=== PATIENT | female | born 1955 | race Caucasian/White ===

== ENCOUNTER 2020-06-20 05:29 | Inpatient (IN) | payer MEDICARE, BC ==
[2020-06-13 16:10] LABS: BASOPHILS # (AUTO) 0.1 X10'3 (0-0.2); BASOPHILS % (AUTO) 0.9 % (0-1); EOSINOPHILS # (AUTO) 0.1 X10'3 (0-0.9); EOSINOPHILS % (AUTO) 1.4 % (0-6); LYMPHOCYTES # (AUTO) 2.4 X10'3 (1.1-4.8); LYMPHOCYTES % (AUTO) 26.9 % (21-51); MEAN CORPUSCULAR HGB CONC 33.5 g/dL (33.0-36.5); MEAN CORPUSCULAR VOLUME 86.4 FL (78-98); MEAN PLATELET VOLUME 8.7 FL (7.4-10.4); MONOCYTES # (AUTO) 0.6 X10'3 (0-0.9); MONOCYTES % (AUTO) 6.7 % (2-12); NEUTROPHILS # (AUTO) 5.8 X10'3 (1.8-7.7); NEUTROPHILS % (AUTO) 64.1 % (42-75); PRE OP HEMOGLOBIN 14.1 g/dL (12.0-16.0); PRE OP PLATELET COUNT 194 X10'3 (140-440); RED BLOOD COUNT 4.87 X10'6 (4.20-5.60); RED CELL DISTRIBUTION WIDTH 15.1 % (11.5-14.5)
[2020-06-13 16:18] LABS: HEMOGLOBIN A1C 6.8 % (4.5-6.2)
[2020-06-13 16:21] LABS: ALBUMIN 4.1 G/DL (3.4-5.0); ALBUMIN/GLOBULIN RATIO 1.1 (1.1-1.5); ALKALINE PHOSPHATASE 81 IU/L (46-116); BLOOD UREA NITROGEN 21 MG/DL (7-18); BUN/CREATININE RATIO 22.1 (6.6-38.0); CHLORIDE 104 MMOL/L (99-107); CREATININE 0.95 MG/DL (0.40-0.90); PRE OP ALT 33 U/L (30-65); PRE OP ANION GAP 12 (8-16); PRE OP AST 18 U/L (10-37); PRE OP BILIRUB, TOTAL 0.6 MG/DL (0.0-1.0); PRE OP GLUCOSE 119 MG/DL (70-104); PRE OP SODIUM 139 MMOL/L (135-145); TOTAL PROTEIN 7.7 G/DL (6.4-8.2); eGFR 59 ML/MIN
[2020-06-20] VITALS (21 sets, daily range): BP systolic 118–160; BP diastolic 66–81
[~2020-06-20] VITALS: Ht 162.6 cm; Wt 116.1 kg
[~2020-06-20 05:29] MED LIST: AMLO10TA PO; ATOR40TA PO; BENA20TA82 PO; FLUO40CA PO; METF1000 PO; ringers solution, lacted 1,000 ML IV SCH
[2020-06-20] MEDS ORDERED: ceFAZolin 2gm in dextrose, iso 50 ML IV ONE (05:30)
[2020-06-20] MEDS ORDERED: famotidine 20mg tablet PO ONE (05:30)
[2020-06-20] MEDS ORDERED: LIDOcaine 1% (10mg/ml) 2ml vial ONE (05:53)
[2020-06-20] MEDS ORDERED: propofol inj 20 ML IV ONE (07:22)
[2020-06-20] MEDS ORDERED: rocuronium 10mg/ml inj IV ONE (07:22)
[2020-06-20] MEDS ORDERED: midazolam 2 mg/2 ml injection ONE (07:22)
[2020-06-20] MEDS ORDERED: fentaNYL /PF 50mcg/ml 5ml ampule ONE (07:22)
[2020-06-20] MEDS ORDERED: sevoflurane 250ml liquid IH ONE (07:46)
[2020-06-20] MEDS ORDERED: neostigmine methylsulfate 1 MG/ML 10ml vial ONE ×2 (07:46→12:13)
[2020-06-20] MEDS ORDERED: acetaminophen 1000 MG/100ml vial IV ONE (07:46)
[2020-06-20] MEDS ORDERED: glycopyrrolate 0.2mg/ml inj ONE ×2 (07:46→12:13)
[2020-06-20] MEDS ORDERED: BUPIVAcaine/PF 2.5 mg/ml (0.25%) 30ml vial IJ ONE (08:00)
[2020-06-20] MEDS ORDERED: dexamethasone sod phosphate 4mg/ml inj. ONE (09:05)
[2020-06-20] MEDS ORDERED: ondansetron/PF 4mg/2ml inj ONE (09:05)
[2020-06-20] MEDS ORDERED: ringers solution, lacted 1,000 ML IV SCH (09:36)
[2020-06-20] MEDS ORDERED: meperidine/PF 25mg/ml syringe IV PRN ×3 (09:40)
[2020-06-20] MEDS ORDERED: morphine 2 MG/ML inj. syringe IV PRN (09:40)
[2020-06-20] MEDS ORDERED: proCHLORperazine 10 MG/2 ml inj IV PRN (09:40)
[2020-06-20] MEDS ORDERED: ondansetron/PF 4mg/2ml inj IV PRN ×2 (09:40→12:30)
[2020-06-20] MEDS ORDERED: morphine 4 MG/ML inj SYRINge IV PRN (09:40)
--- NOTE | 2020-06-20 12:25 | NUR ---
Received from OR via , accompanied by Anesthesiologist DR FIGUEROA and report given by Anesthesiolgist. PT IS SLEEPING BUT OPENS EYES TO VOICE, SKIN WARM AND PINK, MOVES EXT X 4, SCD'S AND TEDS, 4 BA'S WITH MARILY CD, PIV LEFT WRIST 18G, ART LINE IN RIGHT WRIST RERMOVED UPON ADMIT TO PACU, RICHARDSON DARK YELLOW TO GRAVITY, NO C/O PAIN, VSS.
[2020-06-20] MEDS ORDERED: CADD PCA waste documentation MC PRN (12:30)
[2020-06-20] MEDS: potassium cl 20mEq in 1/2 NS 1,000 ML IV SCH ×2 (12:30→20:10)
[2020-06-20] MEDS ORDERED: naloxone 0.4 mg/ml inj IV PRN (12:30)
[2020-06-20] MEDS ORDERED: acetaminophen 325mg tablet PO PRN (12:30)
[2020-06-20] MEDS: HYDROmorphone/NS 1 mg/ml CADD 50 ML IV SCH ×6 (13:16→23:00)
--- NOTE | 2020-06-20 13:30 | NUR ---
Report called to receiving nurse. Transferred via BED. Belongings . Special Issues communicated to receiving nurse.PT IS SLEEPY BUT WAKES TO VOICE, SKIN WARM AND PINK, MOVES EXT X 4, NO C/O PAIN, CADD PUMP SET UP FOR USE, PIV PATENT, 4 BA'S CLEAN AND DRY, SCDS/TEDS, RICHARDSON TO GRAVITY.
--- NOTE | 2020-06-20 14:08 | NUR ---
DM consult: Pt with A1c 6.8%, DM education not warranted at this time. Will continue to follow. Addendum: 06/20/20 at [address] Amended: Links added.
--- NOTE | 2020-06-20 18:36 | NUR ---
Problems reprioritized. Patient report given, questions answered & plan of care reviewed with Deanna MAZA.
--- NOTE | 2020-06-20 18:42 | NUR ---
Patient in room [facility]. I have received report from SHAUNNA Roche and had the opportunity to ask questions and assume patient care.
[2020-06-20] MEDS ORDERED: dextrose ORAL solution 15 GM/59 ML bottle PO PRN ×2 (19:00)
[2020-06-20] MEDS ORDERED: dextrose 50%-water 50ml dispensing syringe IV PRN ×2 (19:00)
[2020-06-20] MEDS ORDERED: glucagon, human recombinant 1mg kit SUBCUT PRN (19:00)
[2020-06-20] MEDS: insulin Lispro (HumaLOG) vial - multi-dose SQ SCH (19:19)
[2020-06-20] MEDS: FLUoxetine 20mg capsule PO SCH (20:00)
[2020-06-20] MEDS: insulin glargine (Lantus) pen - multi-dose SQ SCH (21:00)
[2020-06-21 00:36] VITALS: BP 116/60
[2020-06-21] MEDS: HYDROmorphone/NS 1 mg/ml CADD 50 ML IV SCH ×12 (01:00→23:00)
[2020-06-21] MEDS: potassium cl 20mEq in 1/2 NS 1,000 ML IV SCH ×3 (03:08→22:14)
[2020-06-21 03:52] VITALS: BP 105/54
[2020-06-21 05:20] LABS: BASOPHILS % (AUTO) 0.1 % (0-1); EOSINOPHILS % (AUTO) 0.1 % (0-6); HEMATOCRIT 35.8 % (35.0-45.0); HEMOGLOBIN 11.9 g/dl (12.0-16.0); LYMPHOCYTES % (AUTO) 9.3 % (21-51); MEAN CORPUSCULAR HEMOGLOBIN 28.9 PG (27.0-31.0); MEAN CORPUSCULAR HGB CONC 33.3 g/dL (33.0-36.5); MEAN CORPUSCULAR VOLUME 86.6 FL (78-98); MEAN PLATELET VOLUME 8.4 FL (7.4-10.4); MONOCYTES # (AUTO) 0.8 X10'3 (0-0.9); MONOCYTES % (AUTO) 7.9 % (2-12); NEUTROPHILS # (AUTO) 8.7 X10'3 (1.8-7.7); NEUTROPHILS % (AUTO) 82.6 % (42-75); PLATELET COUNT 196 X10'3 (140-440); RED BLOOD COUNT 4.14 X10'6 (4.20-5.60); RED CELL DISTRIBUTION WIDTH 14.8 % (11.5-14.5); WHITE BLOOD COUNT 10.5 X10'3 (4.5-11.0)
[2020-06-21 05:30] LABS: ANION GAP 5 (8-16); BLOOD UREA NITROGEN 12 MG/DL (7-18); BUN/CREATININE RATIO 16.2 (6.6-38.0); CALCIUM 8.3 MG/DL (8.5-10.1); CHLORIDE 105 MMOL/L (99-107); CREATININE 0.74 MG/DL (0.40-0.90); GLUCOSE 139 MG/DL (70-104); SODIUM 138 MMOL/L (135-145); TOTAL CARBON DIOXIDE 27.7 MMOL/L (24-32); eGFR 79 ML/MIN
--- NOTE | 2020-06-21 06:30 | NUR ---
Patient in room [facility]. I have received report from Deanna MAZA and had the opportunity to ask questions and assume patient care.
--- NOTE | 2020-06-21 06:35 | NUR ---
Problems reprioritized. Patient report given, questions answered & plan of care reviewed with SHAUNNA Roche.
[2020-06-21 07:00] VITALS: BP 111/61
[2020-06-21] MEDS: atorvastatin 20mg tablet PO SCH (07:54)
[2020-06-21] MEDS: amLODIPine 5mg tablet PO SCH (07:54)
[2020-06-21] MEDS: FLUoxetine 20mg capsule PO SCH ×2 (07:55→20:15)
[2020-06-21] MEDS: lisinopril 20mg tablet PO SCH (07:55)
[2020-06-21 11:42] VITALS: BP 96/59
[2020-06-21 18:00] VITALS: BP 107/54
[2020-06-21] MEDS: insulin Lispro (HumaLOG) vial - multi-dose SQ SCH (18:24)
--- NOTE | 2020-06-21 18:26 | NUR ---
Problems reprioritized. Patient report given, questions answered & plan of care reviewed with Deanna MAZA.
--- NOTE | 2020-06-21 18:30 | NUR ---
Patient in room [facility]. I have received report from SHAUNNA Roche and had the opportunity to ask questions and assume patient care.
--- NOTE | 2020-06-21 19:23 | NUR ---
Pt has renewable FC. No order in placed. Paged and talked to Dr. Nichols. Per TRACE Lai. Pt has been ambulating.
--- NOTE | 2020-06-21 20:05 | NUR ---
16 F momin DC. Patient tolerated well. Bedpan placed in bsc. Pt has been educated on importance of urination s/p momin. Will continue to monitor urine output.
[2020-06-21] MEDS: insulin glargine (Lantus) pen - multi-dose SQ SCH (21:00)
[2020-06-22 00:15] VITALS: BP 92/37
[2020-06-22] MEDS: HYDROmorphone/NS 1 mg/ml CADD 50 ML IV SCH ×5 (01:00→09:00)
--- NOTE | 2020-06-22 04:32 | NUR ---
Bladder scan performed, 120 mL. Patient was able to void in bsc. Post void residual, 150 mL. Pt without complaint of abdominal discomfort or pain with urination at this time. Will continue to monitor patient.
--- NOTE | 2020-06-22 05:05 | NUR ---
Pt. with c/o pain ranging from 4-5 x2 to left abd region this shift; medicated with p.o norco prn as ordered effective. No c/o n/v this shift. Addendum: 06/23/20 at 0751 by Hortensia Escalante RN Amended: Links added.
[2020-06-22 05:47] LABS: BASOPHILS # (AUTO) 0.1 X10'3 (0-0.2); BASOPHILS % (AUTO) 0.5 % (0-1); EOSINOPHILS # (AUTO) 0.3 X10'3 (0-0.9); EOSINOPHILS % (AUTO) 2.6 % (0-6); HEMATOCRIT 35.3 % (35.0-45.0); HEMOGLOBIN 11.7 g/dl (12.0-16.0); LYMPHOCYTES % (AUTO) 19.7 % (21-51); MEAN CORPUSCULAR HEMOGLOBIN 28.9 PG (27.0-31.0); MEAN CORPUSCULAR VOLUME 87.5 FL (78-98); MEAN PLATELET VOLUME 8.5 FL (7.4-10.4); MONOCYTES # (AUTO) 0.9 X10'3 (0-0.9); MONOCYTES % (AUTO) 8.3 % (2-12); NEUTROPHILS # (AUTO) 7.1 X10'3 (1.8-7.7); NEUTROPHILS % (AUTO) 68.9 % (42-75); PLATELET COUNT 201 X10'3 (140-440); RED BLOOD COUNT 4.04 X10'6 (4.20-5.60); RED CELL DISTRIBUTION WIDTH 15.2 % (11.5-14.5); WHITE BLOOD COUNT 10.3 X10'3 (4.5-11.0)
[2020-06-22 06:03] LABS: ALBUMIN 3.1 G/DL (3.4-5.0); ANION GAP 6 (8-16); BLOOD UREA NITROGEN 10 MG/DL (7-18); BUN/CREATININE RATIO 13.2 (6.6-38.0); CHLORIDE 105 MMOL/L (99-107); CREATININE 0.76 MG/DL (0.40-0.90); GLUCOSE 103 MG/DL (70-104); POTASSIUM 4.2 MMOL/L (3.5-5.1); SODIUM 139 MMOL/L (135-145); TOTAL CARBON DIOXIDE 27.9 MMOL/L (24-32); eGFR 76 ML/MIN
--- NOTE | 2020-06-22 06:19 | NUR ---
Problems reprioritized. Patient report given, questions answered & plan of care reviewed with Layla Toth RN.
--- NOTE | 2020-06-22 06:51 | NUR ---
Patient in room [facility]. I have received report from SHAUNNA RUIZ and had the opportunity to ask questions and assume patient care.
[2020-06-22 07:00] VITALS: BP 113/37
[2020-06-22 07:41] VITALS: BP 136/58
[2020-06-22] MEDS: atorvastatin 20mg tablet PO SCH (07:43)
[2020-06-22] MEDS: docusate sod 250mg capsule PO SCH (07:43)
[2020-06-22] MEDS: FLUoxetine 20mg capsule PO SCH ×2 (07:43→20:05)
[2020-06-22] MEDS: amLODIPine 5mg tablet PO SCH (07:43)
[2020-06-22] MEDS: lisinopril 20mg tablet PO SCH (07:44)
[2020-06-22 10:32] VITALS: BP 113/37
[2020-06-22] MEDS ORDERED: HYDROcodone/acetaminophen 10/325mg tab PO PRN (12:10)
[2020-06-22] MEDS: potassium cl 20mEq in 1/2 NS 1,000 ML IV SCH ×2 (16:23→19:34)
--- NOTE | 2020-06-22 18:00 | NUR ---
Patient in room [facility]. I have received report from Layla MAZA and had the opportunity to ask questions and assume patient care. Addendum: 06/23/20 at 0734 by Hortensia Escalante RN Amended: Links added.
--- NOTE | 2020-06-22 18:55 | NUR ---
Problems reprioritized. Patient report given, questions answered & plan of care reviewed with SHAUNNA KAPLAN.
[2020-06-22] MEDS: HYDROcodone/acetaminophen 5mg/325mg tablet PO PRN (19:55)
[2020-06-22 20:00] VITALS: BP 101/68
[2020-06-22] MEDS: insulin glargine (Lantus) pen - multi-dose SQ SCH (21:00)
[2020-06-23] VITALS: BP 116/58
--- NOTE | 2020-06-23 03:15 | NUR ---
Pt's c/o pain to IV site. On assessment, IV site with infiltration and no signs of redness at this time. IV discontinued without incident; iv catheter tip intact. Pt. refused for another access attempt, stating "I am going home tomorrow and there is no reason for another IV and I will just drink water." K+ levels 4.2 noted. Addendum: 06/23/20 at 0320 by Hortensia Escalante RN Amended: Links added.
[2020-06-23] MEDS: HYDROcodone/acetaminophen 5mg/325mg tablet PO PRN ×2 (03:33→13:52)
[2020-06-23 05:16] LABS: BASOPHILS % (AUTO) 0.7 % (0-1); EOSINOPHILS # (AUTO) 0.4 X10'3 (0-0.9); EOSINOPHILS % (AUTO) 5.5 % (0-6); HEMATOCRIT 34.6 % (35.0-45.0); HEMOGLOBIN 11.5 g/dl (12.0-16.0); LYMPHOCYTES # (AUTO) 1.7 X10'3 (1.1-4.8); LYMPHOCYTES % (AUTO) 24.3 % (21-51); MEAN CORPUSCULAR HEMOGLOBIN 28.9 PG (27.0-31.0); MEAN CORPUSCULAR HGB CONC 33.3 g/dL (33.0-36.5); MEAN CORPUSCULAR VOLUME 86.9 FL (78-98); MEAN PLATELET VOLUME 8.2 FL (7.4-10.4); MONOCYTES # (AUTO) 0.8 X10'3 (0-0.9); MONOCYTES % (AUTO) 11.6 % (2-12); NEUTROPHILS % (AUTO) 57.9 % (42-75); PLATELET COUNT 211 X10'3 (140-440); RED BLOOD COUNT 3.98 X10'6 (4.20-5.60); WHITE BLOOD COUNT 6.9 X10'3 (4.5-11.0)
[2020-06-23 05:19] LABS: ALBUMIN 2.9 G/DL (3.4-5.0); ANION GAP 4 (8-16); BLOOD UREA NITROGEN 7 MG/DL (7-18); BUN/CREATININE RATIO 10.4 (6.6-38.0); CALCIUM 8.6 MG/DL (8.5-10.1); CHLORIDE 105 MMOL/L (99-107); CREATININE 0.67 MG/DL (0.40-0.90); GLUCOSE 112 MG/DL (70-104); POTASSIUM 3.7 MMOL/L (3.5-5.1); SODIUM 139 MMOL/L (135-145); TOTAL CARBON DIOXIDE 30.2 MMOL/L (24-32); eGFR 88 ML/MIN
--- NOTE | 2020-06-23 05:30 | NUR ---
Pt. refused new iv replacement d/t discharge plans today. Addendum: 06/23/20 at 0714 by Hortensia Escalante RN Amended: Links added.
[2020-06-23] MEDS: potassium cl 20mEq in 1/2 NS 1,000 ML IV SCH (05:34)
[2020-06-23 06:00] VITALS: BP 131/55
--- NOTE | 2020-06-23 06:45 | NUR ---
Patient in room [facility]. I have received report from Hortensia MAZA and had the opportunity to ask questions and assume patient care.
[2020-06-23] MEDS: atorvastatin 20mg tablet PO SCH (08:47)
[2020-06-23] MEDS: docusate sod 250mg capsule PO SCH (08:47)
[2020-06-23] MEDS: amLODIPine 5mg tablet PO SCH (08:47)
[2020-06-23] MEDS: lisinopril 20mg tablet PO SCH (08:48)
[2020-06-23] MEDS: FLUoxetine 20mg capsule PO SCH (08:48)
[2020-06-23] MEDS: insulin Lispro (HumaLOG) vial - multi-dose SQ SCH (09:00)
--- NOTE | 2020-06-23 09:00 | NUR ---
Redness noted around L Lower Abdominal incision/bandaid. notified. Will continue to monitor.
[2020-06-23] MEDS ORDERED: CEPH-572 PO (09:20)
[2020-06-23] MEDS ORDERED: DOCU-148 PO (09:20)
[2020-06-23] MEDS ORDERED: HYDR-4383 PO (09:20)
[2020-06-23 11:00] VITALS: BP 128/63
--- NOTE | 2020-06-23 12:00 | NUR ---
pt refused 1200 accucheck/blood glucose check. D/C'g home. Will continue to monitor
--- NOTE | 2020-06-23 14:30 | NUR ---
Pt stable and appropriate for d/c. No PIV. Reviewed with Pt all d/c instructions and meds. Prescriptions escripted to [facility] [place] by [place] Villalobos's office. Triplicate given to pt to fill at pharmacy of choice. Pt to call and schedule f/u appts with Dr Villalobos for one week and PCP in 1-2 weeks. Pt to call MD/surgeon with any questions, concerns, or s/sx complications/infection or return to the nearest ED. Pt escorted to front lobby via w/c with all personal belongings, accompanied by staff member. D/C'd home in private vehicle driven by family/friend.
== END 2020-06-23 14:35 | disposition home or self-care (01) | DRG 661 ==
LOC: PAS IN 05:29 → EDSTATUS 07:30 → SUR 3N 14:02
PROVIDERS: ADMIT Urology; ATTEND Urology
PROC: 8E0W4CZ Robotic Assisted Procedure of Trunk Region, Percutaneous Endoscopic Approach (ICD-10-PCS; 2020-06-20)
PROC: 0TB14ZZ Excision of Left Kidney, Percutaneous Endoscopic Approach (ICD-10-PCS; principal; 2020-06-20 07:46)
DX: N28.89 Other specified disorders of kidney and ureter (principal); K66.0 Peritoneal adhesions (postprocedural) (postinfection); E11.9 Type 2 diabetes mellitus without complications; I10 Essential (primary) hypertension; E66.9 Obesity, unspecified
CPT/HCPCS: 36415; 71046; 80048; 80053; 82948; 83036; 85025; 85610; 85730; 86885; 86900; 86901; 87081; 88307; 93005; A4215; A4618; A7000; C1758; G0378; J0131; J1100; J1170; J1815; J2001; J2250; J2405; J2704; J2710; J3010; J3480; J3490; J7030; J7040; J7120

== ENCOUNTER 2024-08-08 09:01 | Day surgery (SDC) | payer MEDICARE, BC ==
[~2024-08-08] VITALS: Ht 162.6 cm; Wt 106.1 kg
[2024-08-08] VITALS (12 sets, daily range): BP systolic 98–139; BP diastolic 54–74; PULSE 67–81; RESP 11–16; TEMP 98.2; O2SAT 94–99
[~2024-08-08 09:01] MED LIST changes: +DOCU-148 PO; +HYDR-4383 PO; -ringers solution, lacted 1,000 ML IV SCH
[2024-08-08] MEDS ORDERED: nitroGLYCERIN 0.4mg SUBLingual tab SL PRN (09:20)
[2024-08-08] MEDS ORDERED: DEXTROSE 15 GM of carb/4 tabs (each vial/BOTTLE has 4 tablets) PO PRN ×2 (09:25)
[2024-08-08] MEDS ORDERED: glucagon, human recombinant 1mg kit SUBCUT PRN (09:25)
[2024-08-08] MEDS ORDERED: dextrose 50%-water 50ml dispensing syringe IV PRN ×2 (09:25)
[2024-08-08] MEDS ORDERED: SEMA2PEN INJ (09:44)
[2024-08-08 10:23] LABS: BASOPHILS # (AUTO) 0.1 X10'3 (0-0.2); BASOPHILS % (AUTO) 1.2 % (0-1); EOSINOPHILS # (AUTO) 0.3 X10'3 (0-0.9); EOSINOPHILS % (AUTO) 4.5 % (0-6); HEMATOCRIT 41.7 % (35.0-45.0); HEMOGLOBIN 13.8 g/dl (12.0-16.0); LYMPHOCYTES # (AUTO) 2.2 X10'3 (1.1-4.8); LYMPHOCYTES % (AUTO) 31.5 % (21-51); MEAN CORPUSCULAR HEMOGLOBIN 28.8 PG (27.0-31.0); MEAN CORPUSCULAR VOLUME 87.2 FL (78-98); MEAN PLATELET VOLUME 8.4 FL (7.4-10.4); MONOCYTES # (AUTO) 0.5 X10'3 (0-0.9); MONOCYTES % (AUTO) 7.1 % (2-12); NEUTROPHILS # (AUTO) 3.8 X10'3 (1.8-7.7); NEUTROPHILS % (AUTO) 55.7 % (42-75); PLATELET COUNT 247 X10'3 (140-440); RED BLOOD COUNT 4.79 X10'6 (4.20-5.60); RED CELL DISTRIBUTION WIDTH 14.6 % (11.5-14.5); WHITE BLOOD COUNT 6.9 X10'3 (4.5-11.0)
[2024-08-08 10:34] LABS: APTT 24 SECONDS (22-32); PROTHROMBIN TIME 10.5 SECONDS (9.0-12.0)
[2024-08-08 10:37] LABS: ALBUMIN 3.8 G/DL (3.4-5.0); ANION GAP 8 (8-16); BLOOD UREA NITROGEN 16 MG/DL (7-18); BUN/CREATININE RATIO 23.5 (10.0-20.0); CALCIUM 9.5 MG/DL (8.5-10.1); CHLORIDE 107 MMOL/L (99-107); CREATININE 0.68 MG/DL (0.40-0.90); GLUCOSE 115 MG/DL (70-104); POTASSIUM 3.9 MMOL/L (3.5-5.1); SODIUM 141 MMOL/L (135-145); TOTAL CARBON DIOXIDE 26.3 MMOL/L (24-32); eCRCL 67 ML/MIN; eGFR 86 ML/MIN
[2024-08-08 10:39] LABS: HEMOGLOBIN A1C 6.5 % (4.5-6.2)
[2024-08-08] MEDS: LORazepam 0.5 MG tablet PO PRN (10:53)
[2024-08-08] MEDS: diphenhydrAMINE 25mg capsule PO PRN (10:53)
[2024-08-08] MEDS: normal saline 1,000 ML IV SCH (10:53)
[2024-08-08] MEDS ORDERED: LIDOcaine 1% 30ml preserv. free vial ONE (11:01)
[2024-08-08] MEDS ORDERED: iohexol 350 MG/ML 50ML vial IV ONE (11:01)
[2024-08-08] MEDS ORDERED: iohexol 350MG/ML 100ml bottle IV ONE (11:01)
[2024-08-08] MEDS ORDERED: midazolam 1 mg/ML 2ml injection ONE (11:02)
[2024-08-08] MEDS ORDERED: fentaNYL/PF 50MCG/1 ML 2ML syringe ONE ×2 (11:02→12:08)
[2024-08-08] MEDS ORDERED: OXAZEpam 15mg capsule PO PRN (13:05)
[2024-08-08] MEDS ORDERED: ondansetron/PF 4mg/2ml inj IV PRN (13:05)
[2024-08-08] MEDS ORDERED: proCHLORperazine 10 MG/2 ml inj IV PRN (13:05)
[2024-08-08] MEDS ORDERED: HYDROcodone/acetaminophen 10/325mg tab PO PRN (13:05)
[2024-08-08 15:28] LABS: ISTAT HGB MIX 12.2 g/dl (12.0-16.0); ISTAT Hct MIX 36 %PCV (35-45); ISTAT O2 SATURATION MIX VENOUS 91 % (60-80); ISTAT SOURCE BLNK
[2024-08-08] MEDS: HYDROcodone/acetaminophen 5mg/325mg tablet PO PRN (17:55)
[2024-08-13 08:25] LABS: ISTAT HGB MIX 12.2 g/dl (12.0-16.0); ISTAT Hct MIX 36 %PCV (35-45); ISTAT O2 SATURATION MIX VENOUS 68 % (60-80); ISTAT SOURCE BLNK
== END 2024-08-08 18:25 | disposition home or self-care (01) ==
LOC: SSTAY O 09:01
PROVIDERS: ATTEND Internal Medicine Cardiovascular Disease
DX: I25.119 Atherosclerotic heart disease of native coronary artery with unspecified angina pectoris (principal); I10 Essential (primary) hypertension; E11.9 Type 2 diabetes mellitus without complications; E66.9 Obesity, unspecified; K21.9 Gastro-esophageal reflux disease without esophagitis; I25.2 Old myocardial infarction; Z68.41 Body mass index [BMI] 40.0-44.9, adult
CPT/HCPCS: 36415; 71046; 80048; 82803; 82948; 83036; 84484; 85014; 85025; 85610; 85730; 93005; 93460; 99152; 99153; A6258; C1751; C1760; C1769; J1644; J2001; J2250; J3010; J7030; Q0163; Q9967; Z7610; J3490